=== PATIENT | female | born 1995 | race Caucasian/White ===

== ENCOUNTER 2023-05-01 18:02 | Emergency (ER) | payer MEDICAID ==
[~2023-05-01] VITALS: Ht 170.2 cm; Wt 75.0 kg
[2023-05-01 18:05] VITALS: O2SAT 96
[2023-05-01] MEDS ORDERED: SODIUM CHLORIDE 0.9% 1,000 ML IV ONE (18:30)
[2023-05-01] MEDS ORDERED: ONDANSETRON HCL 4MG/2ML INJ IV ONE (18:30)
[2023-05-01] MEDS ORDERED: PANTOPRAZOLE SODIUM 40 MG/VIAL IV ONE (18:30)
[2023-05-01] MEDS ORDERED: PANT40SU MT (19:04)
[2023-05-01] MEDS ORDERED: ONDA4TAB50 MT (19:04)
[2023-05-01 20:11] VITALS: BP 135/78; PULSE 72; RESP 20; TEMP 98
== END 2023-05-01 20:15 | disposition home or self-care (01) ==
LOC: ER 18:02
DX: R41.82 Altered mental status, unspecified (principal)
CPT/HCPCS: 99283; J7030